=== PATIENT | female | born 1990 | race Caucasian/White ===

== ENCOUNTER 2017-07-10 05:28 | Inpatient (IN) | payer OTHER ==
[~2017-07-10] VITALS: Ht 170.2 cm; Wt 108.6 kg
[~2017-07-10 05:28] MED LIST: LACTATED RINGERS 1,000 ML IV SCH
[2017-07-10] MEDS ORDERED: OXYTOCIN 30U/ 0.9% NaCL 500ML 500 ML IV SCH (05:31)
[2017-07-10] MEDS ORDERED: LACTATED RINGERS 1,000 ML IV SCH ×2 (05:31→07:40)
[2017-07-10] MEDS ORDERED: NEWBORN KIT ONE (05:35)
[2017-07-10] MEDS ORDERED: SODIUM CITRATE/CITRIC ACID 30 ML UDC ONE (05:35)
[2017-07-10] MEDS ORDERED: METOCLOPRAMIDE 5 MG/ML, 2ML ONE (05:35)
[2017-07-10 05:58] LABS: HEMATOCRIT 35.8 % (34.6-47.8); HEMOGLOBIN 11.9 g/dL (11.7-16.4); WHITE BLOOD COUNT 10.9 x10^3/uL (3.4-10)
[2017-07-10] MEDS ORDERED: PLEASE ENTER HEIGHT AND WEIGHT MC SCH (06:00)
[2017-07-10] MEDS ORDERED: LACTATED RINGERS 1,000 ML IVBOLUS ONE (06:00)
[2017-07-10] MEDS ORDERED: METOCLOPRAMIDE 5 MG/ML, 2ML IV ONE (06:00)
[2017-07-10] MEDS ORDERED: SODIUM CITRATE/CITRIC ACID 30 ML UDC PO ONE (06:00)
[2017-07-10 06:03] VITALS: BP 104/63
[2017-07-10] MEDS ORDERED: FENTANYL PF 100 MCG/2ML ONE (07:07)
[2017-07-10] MEDS ORDERED: EPHEDRINE 50 MG/ML, 1ML ONE (07:07)
[2017-07-10] MEDS ORDERED: OXYTOCIN 10 UNITS/ML, 1ML ONE (07:07)
[2017-07-10] MEDS ORDERED: CEFAZOLIN 1,000 MG ONE (07:07)
[2017-07-10] MEDS ORDERED: OXYTOCIN 30U/ 0.9% NaCL 500ML 500 ML ONE (07:33)
[2017-07-10] MEDS: OXYTOCIN 30U/ 0.9% NaCL 500ML 500 ML IV SCH ×2 (07:40→17:40)
[2017-07-10] MEDS: LACTATED RINGERS 1,000 ML IV SCH ×3 (07:40→23:40)
[2017-07-10] MEDS ORDERED: DIPH,PERTUSS(ACELL),TET VAC/PF NC IM-VACC PRN (08:00)
[2017-07-10] MEDS ORDERED: ONDANSETRON 2MG/ML, 2ML IV PRN (08:00)
[2017-07-10] MEDS ORDERED: RHOGAM FROM BLOOD BANK 1 NOTE EA IM/IV ONE (08:00)
[2017-07-10] MEDS ORDERED: MISOPROSTOL 200 MCG TABLET PR PRN (08:00)
[2017-07-10] MEDS: KETOROLAC 30 MG/1 ML IV SCH ×3 (08:00→21:22)
[2017-07-10] MEDS ORDERED: IBUPROFEN 600 MG TABLET PO PRN (08:00)
[2017-07-10] MEDS ORDERED: MEASLES,MUMPS&RUBELLA VACC/PF 0.5 ML SQ-VACC PRN (08:00)
[2017-07-10] MEDS ORDERED: morphine SULFATE 10 MG/ML, 1ML IVPush PRN (08:00)
[2017-07-10] MEDS ORDERED: CALCIUM CARBONATE 500 MG TAB.CHEW PO PRN (08:00)
[2017-07-10] MEDS ORDERED: KETOROLAC 30 MG/1 ML ONE (08:56)
[2017-07-10] MEDS: PRENATAL VIT/IRON/FA 1 EACH TABLET PO SCH (09:00)
[2017-07-10] MEDS ORDERED: FENTANYL PF 100 MCG/2ML IV PRN (09:30)
[2017-07-10] MEDS ORDERED: morphine SULFATE 10 MG/ML, 1ML IV PRN (09:30)
[2017-07-10] MEDS ORDERED: EPHEDRINE 50 MG/ML, 1ML IVPush PRN (09:30)
[2017-07-10] MEDS ORDERED: OXYcodone 5 MG/5 ML ORAL.SOL UDC PO PRN (09:30)
[2017-07-10] MEDS ORDERED: MEPERIDINE/PF 25MG/0.5ML IVPush PRN (09:30)
[2017-07-10] MEDS ORDERED: ONDANSETRON 2MG/ML, 2ML IVPush PRN (09:30)
[2017-07-10] MEDS ORDERED: PROMETHAZINE 25 MG/ML, 1ML IV PRN (09:30)
[2017-07-10] MEDS ORDERED: OXYcodone 5 MG/5 ML ORAL.SOL UDC ONE (10:49)
[2017-07-10 11:00] VITALS: BP 120/78
[2017-07-10] MEDS: OXYcodone IR 5MG TABLET PO PRN ×3 (13:47→23:46)
[2017-07-10 14:00] VITALS: BP 112/73
[2017-07-10 16:45] LABS: HEMATOCRIT 31.7 % (34.6-47.8); HEMOGLOBIN 10.6 g/dL (11.7-16.4); WHITE BLOOD COUNT 13.1 x10^3/uL (3.4-10)
[2017-07-10 18:00] VITALS: BP 106/66
[2017-07-10 19:30] VITALS: BP 103/67
[2017-07-10 23:50] VITALS: BP 105/60
[2017-07-11] MEDS: KETOROLAC 30 MG/1 ML IV SCH ×4 (03:16→21:02)
[2017-07-11] MEDS: OXYTOCIN 30U/ 0.9% NaCL 500ML 500 ML IV SCH ×2 (03:40→13:25)
[2017-07-11] MEDS: OXYcodone IR 5MG TABLET PO PRN ×2 (04:02→09:10)
[2017-07-11 04:03] VITALS: BP 108/63
[2017-07-11] MEDS: LACTATED RINGERS 1,000 ML IV SCH ×3 (07:40→23:40)
[2017-07-11 08:45] VITALS: BP 101/64
[2017-07-11] MEDS: PRENATAL VIT/IRON/FA 1 EACH TABLET PO SCH (09:10)
[2017-07-11] MEDS ORDERED: DOCUSATE 100 MG CAPSULE ONE (13:15)
[2017-07-11] MEDS: OXYcodone/APAP 5/325MG TABLET PO PRN ×3 (13:19→21:04)
[2017-07-11] MEDS: SIMETHICONE 80 MG CHEW TAB PO PRN ×2 (18:16→21:04)
[2017-07-11 21:00] VITALS: BP 112/68
[2017-07-11] MEDS: DOCUSATE 100 MG CAPSULE PO SCH (21:04)
[2017-07-12] MEDS: KETOROLAC 30 MG/1 ML IV SCH (03:13)
[2017-07-12] MEDS: OXYcodone/APAP 5/325MG TABLET PO PRN ×3 (03:14→13:13)
[2017-07-12] MEDS: PRENATAL VIT/IRON/FA 1 EACH TABLET PO SCH (08:06)
[2017-07-12] MEDS: DOCUSATE 100 MG CAPSULE PO SCH (08:07)
[2017-07-12 08:25] VITALS: BP 101/67
[2017-07-12] MEDS ORDERED: OXYC-302 PO (11:18)
[2017-07-12] MEDS ORDERED: IBUP-1222 PO (11:20)
== END 2017-07-12 14:15 | disposition home or self-care (01) | DRG 766 ==
LOC: LDIP 05:28 → 2NW 10:57
PROVIDERS: ADMIT Obstetrics & Gynecology Gynecology; ATTEND Obstetrics & Gynecology Gynecology
PROC: 10D00Z1 Extraction of Products of Conception, Low, Open Approach (ICD-10-PCS; principal; 2017-07-10)
PROC: 0UB70ZZ Excision of Bilateral Fallopian Tubes, Open Approach (ICD-10-PCS; 2017-07-10)
DX: O34.211 Maternal care for low transverse scar from previous cesarean delivery (principal); E03.9 Hypothyroidism, unspecified; O99.284 Endocrine, nutritional and metabolic diseases complicating childbirth; E28.2 Polycystic ovarian syndrome; Z37.0 Single live birth; Z3A.39 39 weeks gestation of pregnancy; Z30.2 Encounter for sterilization; Z23 Encounter for immunization; Z90.89 Acquired absence of other organs; Z91.013 Allergy to seafood; Z83.3 Family history of diabetes mellitus
CPT/HCPCS: 36415; 82803; 85025; 86850; 86900; 88302; J0690; J1885; J2405; J3010; J2270; J2590; J2765; J7120